=== PATIENT | male | born 1980 | race Caucasian/White ===

== ENCOUNTER 2020-09-29 14:12 | Emergency (ER) | payer OTHER ==
[2020-09-29 14:14] VITALS: BP 160/102; PULSE 102; TEMP 97.7; BMI 36.7
== END 2020-09-29 15:30 | disposition home or self-care (01) ==
LOC: JER 14:12
DX: Z11.59 Encounter for screening for other viral diseases (principal)
CPT/HCPCS: 71046-TC-FY; 99284-25; C9803; Q3014-GT; U0003